=== PATIENT | male | born 2000 | race Caucasian/White ===

== ENCOUNTER 2018-02-02 13:55 | Emergency (ER) | payer OTHER ==
[2018-02-02 15:13] VITALS: BP 140/81
[2018-02-02] MEDS ORDERED: Lidocaine 2% W/EPI 1:100,000* 20 ML MDV INJ ONE (15:46)
--- NOTE | 2018-02-02 15:51 | UC ---
Laceration HPI - HPI Summary HPI Summary: About 11:30 PM fell and hit left orbit on railing Seen at [facility] and Dr. Good sent him here requesting a CT of his orbit No LOC No MOTLEY No dizziness no N/V No eye pain no visual C/O - History Of Current Complaint Chief Complaint: UCEye Stated Complaint: EYE BROW LAC Time Seen by Provider: 02/02/18 15:39 Hx Obtained From: Patient Laceration Location: Face Mechanism Of Injury: Sharp Trauma Onset/Duration: Sudden Onset Severity: Mild Pain Intensity: 3 Pain Scale Used: 0-10 Numeric Aggravating Factors: Nothing Head: 1 - lac 2 - lac - Allergies/Home Medications Allergies/Adverse Reactions: Allergies Allergy/AdvReac Type Severity Reaction Status Date / Time No Known Allergies Allergy Verified 02/02/18 15:13 Home Medications: Home Medications NK [No Home Medications Reported] 02/02/18 [History Confirmed 02/02/18] PMH/Surg Hx/FS Hx/Imm Hx Previously Healthy: Yes - Surgical History Surgical History: Yes Surgery Procedure, Year, and Place: acl - Family History Known Family History: Positive: Hypertension - Social History Alcohol Use: Occasionally Substance Use Type: None Smoking Status (MU): Never Smoked Tobacco Review of Systems Constitutional: Negative Skin: Bruising Eyes: Negative ENT: Negative Respiratory: Negative Cardiovascular: Negative Gastrointestinal: Negative Genitourinary: Negative Motor: Negative Neurovascular: Negative Musculoskeletal: Negative Neurological: Negative Psychological: Negative Is Patient Immunocompromised?: No All Other Systems Reviewed And Are Negative: Yes Physical Exam Triage Information Reviewed: Yes Appearance: Well-Appearing, No Pain Distress, Well-Nourished Vital Signs: Initial Vital Signs Temp 99.3 F 02/02/18 15:08 Pulse 70 02/02/18 15:08 Resp 16 02/02/18 15:08 BP 140/81 02/02/18 15:08 Pulse Ox 100 02/02/18 15:08 Vital Signs Reviewed: Yes Eyes: Positive: Conjunctiva Clear, Other: - EOMI/PERRL, no hyphema ENT: Positive: Hearing grossly normal. Negative: Nasal congestion, Nasal drainage Neck: Positive: Supple, Nontender Respiratory: Positive: Lungs clear, Normal breath sounds, No respiratory distress Musculoskeletal: Positive: ROM Intact, No Edema Neurological: Positive: Alert, Other: - GCS 15/15 Psychological Exam: Normal Skin Exam: Normal Laceration Repair - Laceration Repair 1 Description: Linear Laceration Size After Repair: Length (cm) - 1.2, Width (mm) - 3, Depth (mm) - 2 Anesthesia Used: 2.0% Lido Additive Used (in ml): Epi Cleansing Completed Via Routine Prep: Yes Irrigation With Pressure Irrigation Device: Yes Closure Material: Sutures Closure Method: Single Layer Suture Of: Skin Suture Type: Nylon - #5 6-0 nylon interupted sutures 2 Description: Linear Laceration Size After Repair: Length (cm) - 1.1, Width (mm) - 3, Depth (mm) - 2 Modified For Repair: No Type Injection: Local Anesthesia Used: 2.0% Lido Additive Used (in ml): Epi Cleansing Completed Via Routine Prep: Yes Irrigation With Pressure Irrigation Device: Yes Closure Material: Sutures Closure Method: Single Layer Suture Of: Skin Suture Type: Nylon - #5 6-0 nylon interupted sutures Diagnostics - Radiology No standard instances Xray Interpretation: No Acute Changes - CT L orbit Radiology Interpretation Completed By: Radiologist Laceration Course/Dx - Differential Dx - Laceration/Wound Provider Diagnoses: Left upper eyelid laceration repair x 2. left orbital rim contusion Discharge - Sign-Out/Discharge Documenting (check all that apply): Patient Departure All imaging exams completed and their final reports reviewed: Yes - Discharge Plan Condition: Critical Disposition: HOME Patient Education Materials: Facial Laceration (ED), Ice Pack Application (ED) Referrals: [facility] [Primary Care Provider] - 5 Days Additional Instructions: Rest ice tylenol or advil starting tomorrow gently clean twice daily with soap and water gently dry apply a thin film of [employer] recheck for concerns of infection I suggest suture removal in 5 days - Billing Disposition and Condition Condition: CRITICAL Disposition: Home
--- NOTE | 2018-02-02 16:11 | RAD ---
Indication: Fall down stairs with injury to the face with laceration to the LEFT eyebrow region. Ecchymosis and swelling. Comparison: No relevant prior exams available [place] [facility] [place] [facility] [place]. Technique: Noncontrast CT through the orbits. Multiplanar reformation. Report: Mild asymmetric soft tissue edema at the LEFT supraorbital margin. No loculated soft tissue plane hematoma or subcutaneous emphysema evident. Unremarkable post septal orbital contents symmetric with the contralateral side. The orbital and maxillary sinus margins, zygomatic arches, pterygoid plates, and nasal bones are intact. The partially visualized portion of the mandible is intact. Normal temporal mandibular joint alignment. 2.2 cm mucosal retention cyst versus polyp at the RIGHT maxillary sinus. Mucosal thickening at the posterior RIGHT ethmoid and bilateral sphenoid sinuses without significant paranasal sinus fluid levels. Clear mastoid air spaces. IMPRESSION: #. Negative for orbital margin fracture. #. Mild asymmetric soft tissue edema at the LEFT supraorbital margin. No loculated soft tissue plane hematoma or subcutaneous emphysema evident.
== END 2018-02-02 17:05 | disposition home or self-care (01) ==
LOC: UCEAST 13:55
DX: S01.112A Laceration without foreign body of left eyelid and periocular area, initial encounter (principal); W19.XXXA Unspecified fall, initial encounter; Y92.9 Unspecified place or not applicable; S05.12XA Contusion of eyeball and orbital tissues, left eye, initial encounter
CPT/HCPCS: 12011; 70480; 99201; G0463